=== PATIENT | male | born 1950 | race Caucasian/White ===

== ENCOUNTER 2024-05-26 18:43 | Inpatient (IN) | payer SELFPAY ==
[~2024-05-26] VITALS: Ht 182.9 cm; Wt 78.6 kg
[2024-05-26 19:20] LABS: BASOPHILS ABSOLUTE AUTO 0.01 K/mm3 (0.00-0.23); BASOPHILS PERCENT AUTO 0 % (0-2); EOSINOPHILS ABSOLUTE AUTO 0.02 K/mm3 (0.00-0.68); EOSINOPHILS PERCENT AUTO 0 % (0-6); Hematocrit 38.8 % (37.0-53.0); Hemoglobin 13.2 g/dL (13.5-17.5); IMMATURE GRAN ABSOLUTE AUTO 0.03 K/mm3 (0.00-0.10); IMMATURE GRAN PERCENT AUTO 0 % (0-1); LYMPHOCYTES PERCENT AUTO 14 % (21-46); MONOCYTES ABSOLUTE AUTO 0.52 K/mm3 (0.16-1.47); MONOCYTES PERCENT AUTO 7 % (4-13); Mean Corpuscular HGB 33.3 pg (26.0-34.0); Mean Corpuscular Volume 98 fL (80-100); Mean Platelet Volume 11.6 fL (9.1-12.4); NEUTROPHILS ABSOLUTE AUTO 5.47 K/mm3 (1.96-9.15); NEUTROPHILS PERCENT AUTO 78 % (41-73); Platelet Count 88 K/mm3 (150-400); RDW Standard Deviation 61.5 fL (35.1-46.3); Red Blood Cell Count 3.96 M/mm3 (4.30-5.90); White Blood Cell Count 7.05 K/mm3 (4.00-11.30)
[2024-05-26] MEDS ORDERED: MethylPREDNISolone Sod Succ 125 MG Vial IV ONE (19:25)
[2024-05-26] MEDS ORDERED: HYDACE10B PO (19:31)
[2024-05-26 19:36] LABS: Alanine Aminotransfer (ALT/SGP 32 U/L (12-78); Albumin, Blood 2.1 g/dL (3.4-5.0); Albumin/Globulin Ratio 0.5 (0.8-1.8); Alk Phos 350 U/L (50-136); Anion Gap 12 mmol/L (3-11); Aspartate Aminotrans (AST/SGOT 213 U/L (12-37); Bilirubin, Total 3.5 mg/dL (0.1-1.0); Blood Urea Nitrogen 13 mg/dL (8-24); Bun/Creatinine Ratio 15.9 (12.0-20.0); CO2, Blood 22 mmol/L (21-32); Calcium, Blood 8.3 mg/dL (8.5-10.1); Chloride, Blood 105 mmol/L (98-108); Creatinine, Blood 0.82 mg/dL (0.60-1.20); Globulin, Blood 4.3 g/dL (2.2-4.0); Glomerular Filtration Rate 92 (60-); Glucose, Blood 88 mg/dL (70-99); Potassium, Blood 4.1 mmol/L (3.5-5.5); Sodium, Blood 135 mmol/L (136-145); Total Protein, Blood 6.4 g/dL (6.4-8.2)
[2024-05-26 20:24] LABS: Influenza A, PCR NEGATIVE (NEGATIVE); Influenza B, PCR NEGATIVE (NEGATIVE); Resp Syncytial Virus, PCR NEGATIVE (NEGATIVE)
[2024-05-26 21:04] LABS: SARS-Cov-2 (COVID-19) PCR, MMC POSITIVE (NEGATIVE)
[2024-05-26 21:08] LABS: Ethanol (Alcohol), Blood, Med <3 mg/dL
[2024-05-26 21:55] LABS: International Normalized Ratio 1.23
[2024-05-26] MEDS ORDERED: Acetaminophen 325 MG TABLET PO PRN (22:50)
[2024-05-26] MEDS ORDERED: OxyCODONE HCL 5 MG TAB PO PRN ×2 (22:50→23:55)
[2024-05-26] MEDS ORDERED: Guaifenesin/Dextromethorphan Syrup 5 ML UDC PO PRN (22:50)
[2024-05-26] MEDS ORDERED: Melatonin 3 MG Tab PO PRN (22:50)
[2024-05-26] MEDS ORDERED: Ondansetron HCl 2 MG / ML 2ML Vial IV PRN (22:50)
[2024-05-26 22:56] LABS: Source, Urine Voided
[2024-05-26 22:58] LABS: Blood, Urine Neg (Neg); Glucose Qualitative, Urine Neg (Neg); Ketones, Urine 1+ (Neg); Leukocyte Esterase, Urine 1+ (Neg); Nitrite, Urine Neg (Neg); Protein, Urine 2+ (Neg); Specific Gravity, Urine 1.005 (1.003-1.022); Urobilinogen, Urine 3+ (Normal)
[2024-05-26 23:06] LABS: Appearance, Urine Clear (Clear); Bilirubin, Urine 1+ (Neg); Color, Urine Amber (P-Yellow)
[2024-05-26 23:07] LABS: Bacteria Not Seen /hpf; Red Blood Cells, Urine Not Seen /hpf (0-2); Squamous Epithelial Cells Not Seen /hpf (Few); White Blood Cells, Urine 0-2 /hpf (0-5)
[2024-05-26] MEDS ORDERED: Albuterol HFA200 ACT/6.7 GM INH INH PRN (23:40)
[2024-05-26 23:46] LABS: D-Dimer, Quantitative 2.52 mg/L FEU (0.00-0.52)
[2024-05-26] MEDS ORDERED: OxyCODONE HCL 5 MG TAB PO ONE (23:55)
[2024-05-27 00:10] VITALS: BP 143/74
[2024-05-27] MEDS ORDERED: Morphine Sulfate 4 MG/1 ML Injection IV PRN (02:45)
[2024-05-27] MEDS ORDERED: Naloxone HCl 0.4MG / ML 1ML Vial IV PRN (02:45)
[2024-05-27 05:33] VITALS: BP 135/71
[2024-05-27 05:50] LABS: BASOPHILS ABSOLUTE AUTO 0.01 K/mm3 (0.00-0.23); BASOPHILS PERCENT AUTO 0 % (0-2); EOSINOPHILS PERCENT AUTO 0 % (0-6); Hematocrit 36.1 % (37.0-53.0); Hemoglobin 12.5 g/dL (13.5-17.5); IMMATURE GRAN ABSOLUTE AUTO 0.01 K/mm3 (0.00-0.10); IMMATURE GRAN PERCENT AUTO 0 % (0-1); LYMPHOCYTES ABSOLUTE AUTO 0.49 K/mm3 (0.84-5.20); LYMPHOCYTES PERCENT AUTO 11 % (21-46); MONOCYTES ABSOLUTE AUTO 0.15 K/mm3 (0.16-1.47); MONOCYTES PERCENT AUTO 3 % (4-13); Mean Corpuscular HGB 33.3 pg (26.0-34.0); Mean Corpuscular HGB Conc 34.6 g/dL (31.5-36.5); Mean Corpuscular Volume 96 fL (80-100); NEUTROPHILS ABSOLUTE AUTO 3.85 K/mm3 (1.96-9.15); NEUTROPHILS PERCENT AUTO 85 % (41-73); Platelet Count 74 K/mm3 (150-400); RDW Coefficient Variation 16.8 % (11.7-14.2); RDW Standard Deviation 59.5 fL (35.1-46.3); Red Blood Cell Count 3.75 M/mm3 (4.30-5.90); White Blood Cell Count 4.51 K/mm3 (4.00-11.30)
--- NOTE | 2024-05-27 06:00 | NUR ---
NOC SHIFT SUMMARY REPORT RECEIVED FROM EMILY IN THE ER. PT ARRIVED VIA GURNEY TO ROOM 359 AT 0010 IN NO APPARENT DISTRESS. SEE ADMISSION ASSESSMENT. HE IS JAUNDICED WITH MODERATE ABDOMINAL DISTENSION, 3+ RLE EDEMA, 2+ LLE EDEMA. MD AWARE OF ASYMETRICAL EDEMA. PT REPORTS HIS CHRONIC BACK PAIN IS MUCH WORSE THAN IT WAS AT HOME. HE SUSPECTS THIS WAS CAUSED BY SPENDING SEVERAL HOURS ON A GURNEY. 5MG OXYCODONE WAS NOT EFFECTIVE FOR HIM. HE REPORTS OPIOID TOLERANCE. MD CARPIOFIED. RECEIVED ORDERS FOR IV MORPHINE. PT HAD AN EPISODE OF DIARRHEA. WILL BE NPO EXCEPT CHIPS AND MEDS IN ANTICIPATION FOR A PARACENTESIS TODAY.
[2024-05-27 06:10] LABS: Albumin, Blood 1.9 g/dL (3.4-5.0); Albumin/Globulin Ratio 0.5 (0.8-1.8); Bilirubin, Total 2.9 mg/dL (0.1-1.0); Bun/Creatinine Ratio 17.7 (12.0-20.0); Creatinine, Blood 0.73 mg/dL (0.60-1.20); Magnesium, Blood 1.9 mg/dL (1.6-2.4); Potassium, Blood 4.5 mmol/L (3.5-5.5); Total Protein, Blood 5.9 g/dL (6.4-8.2)
[2024-05-27 06:50] LABS: Cancer Antigen 19-9 240.9 U/mL (2.0-37.0); Carcinoembryonic Antigen 13.2 ng/mL (0.0-3.0)
[2024-05-27 06:53] LABS: Alpha Feto Protein, Tumor Mkr >20000.0 ng/mL (0.0-8.0)
[2024-05-27 08:28] VITALS: BP 143/68
[2024-05-27] MEDS ORDERED: Docusate Sodium 100 MG Cap PO SCH (09:00)
[2024-05-27] MEDS ORDERED: Enoxaparin 40 MG/0.4 ML SYR SC SCH (09:00)
[2024-05-27] MEDS ORDERED: Thiamine HCl 100 MG Tab PO SCH (15:00)
[2024-05-27 15:53] VITALS: BP 140/69
[2024-05-27] MEDS ORDERED: Propranolol HCL 20 MG TAB PO SCH (16:30)
--- NOTE | 2024-05-27 19:58 | NUR ---
SUMMARY- PT A/O X3, POOR HISTORIAN. SLEPT MOST OF THE MORNING, VERY SLEEPY BU AWAKENS TO VERBAL STIM. PLEASANT AND COOPERATIVE. SET OFF BED ALARM AT 1100 NEEDING TO URINATE, CONTINENT OF URINE. VOIDED ONCE TODAY 200ML IY/LIVER APPEARING URINE. TOLERATING FLUIDS, LIKES PEPSI. HAS VERY LITTLE APPETITE, COULD ONLY GET PT TO EAT A FEW BITES OF LUNCH AND DINNER, NPO FOR BREAKFAST TIME. PT IS JAUNDICED, LG DISTENDED ABD, TENDER TO PALP. SEVERE EDEMA BLE AND ARMS WITH THIN FRAGILE SKIN AND EDEMA. CHRONIC PAIN IN BACK CONTROLLED WITH OXYCODONE 5MG Q4. DR LEVINE DC'D PARACENTESIS AND CT OF CHEST. PALLIATIVE SPOKE WITH PT SEE NOTES. FAMILY IN TO VISIT AT NOON TIME. PT GOT OOB TO CHAIR ONCE FOR 30MIN WHILE WE WASHED HIM AND CHANGED LINENS. TIRES EASILY BUT ABLE TO STAND WITH SBA, VERY WEAK. REPORTED TO NOC CHARIS SIDDIQUI
[2024-05-27 20:22] VITALS: BP 143/82
[2024-05-28 03:24] VITALS: BP 152/76
[2024-05-28 05:41] LABS: Hematocrit 38.4 % (37.0-53.0); Hemoglobin 13.1 g/dL (13.5-17.5); Mean Corpuscular HGB 33.5 pg (26.0-34.0); Mean Corpuscular HGB Conc 34.1 g/dL (31.5-36.5); Mean Corpuscular Volume 98 fL (80-100); Platelet Count 117 K/mm3 (150-400); RDW Coefficient Variation 16.8 % (11.7-14.2); RDW Standard Deviation 61.1 fL (35.1-46.3); Red Blood Cell Count 3.91 M/mm3 (4.30-5.90); White Blood Cell Count 14.68 K/mm3 (4.00-11.30)
[2024-05-28 05:54] LABS: International Normalized Ratio 1.22; Prothrombin Time Results 12.9 Sec (9.7-11.5)
--- NOTE | 2024-05-28 05:55 | NUR ---
Patient alert and oriented x1-2, restless in bed, frequently requiring redirection or replacement in bed. Bed alarm active and effective in preventing falls. PRN pain medication given twice, see eMAR, tolerated well. 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
[2024-05-28 06:07] LABS: Albumin, Blood 2.2 g/dL (3.4-5.0); Albumin/Globulin Ratio 0.5 (0.8-1.8); Bilirubin, Total 3.5 mg/dL (0.1-1.0); Bun/Creatinine Ratio 20.9 (12.0-20.0); Calcium, Blood 8.2 mg/dL (8.5-10.1); Creatinine, Blood 0.91 mg/dL (0.60-1.20); Globulin, Blood 4.5 g/dL (2.2-4.0); Potassium, Blood 4.3 mmol/L (3.5-5.5); Total Protein, Blood 6.7 g/dL (6.4-8.2)
[2024-05-28 07:59] VITALS: BP 144/90
[2024-05-28] MEDS ORDERED: Multivitamins 1 Tab PO SCH (09:00)
[2024-05-28] MEDS ORDERED: Spironolactone 25 MG Tab PO SCH (09:00)
[2024-05-28 15:13] VITALS: BP 139/67
--- NOTE | 2024-05-28 17:44 | NUR ---
MET WITH PATIENT AND DISCUSSED GOALS OF CARE. GISELLA REPORTED THAT HE HASNT BEEN EATING WELL RECENTLY DUE TO NAUSEA, BUT IT IS IMPROVING. HE DENIES PAIN AT THIS TIME. HE REPORTES BEING TIRED BUT SLEEPING OK. ATTEMPTED TO HAVE A CONVERSATION ABOUT HIS PRUSUING DIAGNOSTIC AND TREATMENT FOR SUSPECTED CANCER, HE CHANGED THE SUBJECT QUICKLY SEVERAL TIMES. PC WILL CONTINUE TO BE AVALIABLE.
--- NOTE | 2024-05-28 18:03 | NUR ---
SHIFT SUMMARY PATIENT ALERT AND INTERACTIVE BUT CONFUSED. FAMILY IN TO SEE PATIENT. PATIENT HAD CT DONE OF CHEST. PATIENT EASILY IRRITABLE IF UNSURE OR CONFUSED. FAMILY SUPPORTIVE AND EAGER TO GET PATIENT HOME AND HAVE A PLAN FOR CARE. CONTINUE TO MEDICATE FOR CHRONIC PAIN NEEDED PER MAR. POSSIBLE DISCHARGE TOMORROW AND PLAN FOR OUTPATIENT FOLLOW UP.
[2024-05-28 19:38] VITALS: BP 148/79
[2024-05-28] MEDS ORDERED: LORazepam 2 MG/ML 1ML Injection IV PRN (21:55)
[2024-05-29 04:03] VITALS: BP 138/71
[2024-05-29 05:00] LABS: BASOPHILS ABSOLUTE AUTO 0.01 K/mm3 (0.00-0.23); BASOPHILS PERCENT AUTO 0 % (0-2); EOSINOPHILS PERCENT AUTO 0 % (0-6); Hemoglobin 11.9 g/dL (13.5-17.5); IMMATURE GRAN ABSOLUTE AUTO 0.09 K/mm3 (0.00-0.10); IMMATURE GRAN PERCENT AUTO 1 % (0-1); LYMPHOCYTES ABSOLUTE AUTO 0.61 K/mm3 (0.84-5.20); LYMPHOCYTES PERCENT AUTO 9 % (21-46); MONOCYTES ABSOLUTE AUTO 0.53 K/mm3 (0.16-1.47); MONOCYTES PERCENT AUTO 7 % (4-13); Mean Corpuscular HGB 33.5 pg (26.0-34.0); Mean Corpuscular Volume 96 fL (80-100); Mean Platelet Volume 11.6 fL (9.1-12.4); NEUTROPHILS PERCENT AUTO 83 % (41-73); Platelet Count 77 K/mm3 (150-400); RDW Coefficient Variation 16.7 % (11.7-14.2); RDW Standard Deviation 59.2 fL (35.1-46.3); Red Blood Cell Count 3.55 M/mm3 (4.30-5.90); White Blood Cell Count 7.14 K/mm3 (4.00-11.30)
[2024-05-29 05:46] LABS: Albumin, Blood 1.9 g/dL (3.4-5.0); Albumin/Globulin Ratio 0.5 (0.8-1.8); Bilirubin, Total 3.9 mg/dL (0.1-1.0); Bun/Creatinine Ratio 22.4 (12.0-20.0); Calcium, Blood 7.8 mg/dL (8.5-10.1); Creatinine, Blood 0.8 mg/dL (0.60-1.20); Globulin, Blood 3.9 g/dL (2.2-4.0); Percent Saturation 26.1 % (20.0-50.0); Total Protein, Blood 5.8 g/dL (6.4-8.2)
--- NOTE | 2024-05-29 06:11 | NUR ---
Patient alert and confused throughout shift, impulsive, unable to appropriately redirect or follow direction. Patient requiring Maria T vest restraint system to maintain safety in bed, tolerating well. 2L oxygen via nasal cannula placed on patient r/t SpO2 88% on room air while sleeping overnight. PRN ativan order placed by hospitalist team, one dose given and tolerated well.
[2024-05-29 08:12] VITALS: BP 117/77
[2024-05-29] MEDS ORDERED: CefTRIAXone Sodium 2,000 MG in NS 100 ML IV SCH (09:00)
[2024-05-29] MEDS ORDERED: Acetaminophen 650 MG Supp PR PRN (14:20)
[2024-05-29] MEDS ORDERED: Atropine Sulfate 1% Opth Soln 2ML BTL SL PRN (14:20)
[2024-05-29 15:03] VITALS: BP 134/72
--- NOTE | 2024-05-29 17:42 | NUR ---
SHIFT SUMMARY PATIENT RESTLESS, CONFUSED, AND REPEATEDLY ATTEMPTING TO CLIMB OUT OF BED. PATIENT UNABLE TO STAND WITHOUT ASSISTANCE AND HIGH FALL RISK. JOSUE VEST CONTINUES TO BE IN PLACE. PATIENT REPOSITIONED AND TURNED FREQUENTLY. PATIENT TO CT FOR HEAD CT EARLY ON SHIFT. ON RETURN, PATIENT FOUND TO HAVE A SKIN TEAR ON R ARM NEAR AC AREA. AREA CLEANSED, STERI STRIPS APPLIED AND COVERED WITH A DRY DRESSING. ATTEMPTED TO USE CONDOM CATH BECAUSE OF AGITATION RELATED TO NEED TO VOID AND NOW NO LONGER ABLE TO MANAGE URINAL. PATIENT PULLED CONDOM CATH OFF. FAMILY UPDATED RELATED TO CONDITION. PATIENT CONTINUES TO BE A FULL CODE AT THIS TIME.
[2024-05-29 20:43] VITALS: BP 110/88
--- NOTE | 2024-05-29 21:10 | NUR ---
FAMILY CALLED AND STATED THAT THEY WANTED TO CHANGE THE PATIENT'S CODE STATUS, THE DAUGHTER MENDEZ ANTHONY AND HIS ARTI KAPLAN. SPOKE WITH MARISABEL AND GOT ORDERS FOR DNR. FAMILY WANTS THE DNR FOR TONIGHT AND THEY WILL DISCUSS WHAT COMFORT MEASURES ARE TOMORROW AND POSSIBLY CHANGE THEM TO COMFORT MEASURES TOMORROW. PRIMARY RN MARCIA IS AWARE.
[2024-05-30 04:29] VITALS: BP 98/79
[2024-05-30 05:13] LABS: BASOPHILS ABSOLUTE AUTO 0.02 K/mm3 (0.00-0.23); BASOPHILS PERCENT AUTO 0 % (0-2); EOSINOPHILS PERCENT AUTO 0 % (0-6); Hematocrit 33.4 % (37.0-53.0); Hemoglobin 11.4 g/dL (13.5-17.5); IMMATURE GRAN ABSOLUTE AUTO 0.16 K/mm3 (0.00-0.10); IMMATURE GRAN PERCENT AUTO 2 % (0-1); LYMPHOCYTES ABSOLUTE AUTO 0.79 K/mm3 (0.84-5.20); LYMPHOCYTES PERCENT AUTO 10 % (21-46); MONOCYTES ABSOLUTE AUTO 0.73 K/mm3 (0.16-1.47); MONOCYTES PERCENT AUTO 9 % (4-13); Mean Corpuscular HGB 33.1 pg (26.0-34.0); Mean Corpuscular HGB Conc 34.1 g/dL (31.5-36.5); Mean Corpuscular Volume 97 fL (80-100); Mean Platelet Volume 12.7 fL (9.1-12.4); NEUTROPHILS ABSOLUTE AUTO 6.07 K/mm3 (1.96-9.15); NEUTROPHILS PERCENT AUTO 78 % (41-73); Platelet Count 71 K/mm3 (150-400); RDW Coefficient Variation 16.8 % (11.7-14.2); RDW Standard Deviation 58.8 fL (35.1-46.3); Red Blood Cell Count 3.44 M/mm3 (4.30-5.90); White Blood Cell Count 7.77 K/mm3 (4.00-11.30)
--- NOTE | 2024-05-30 05:25 | NUR ---
SHIFT SUMMARY PT RESTLESS, CONFUSED AND ATTEMPTING TO GET OOB FOR MOST OF NIGHT. PT DID HAVE SOME TIMES WHEN SLEEPING BUT MOSTLY RESTLESS. POSIE VEST STILL IN FOR SAFTEY. PT HAS CONDOM CATH ON, REPLACED TWICE DURING THE SHIFT. PT HAVING LOW URINE OUTPUT. FAMILY CHANGED CODE STATUS TO DNR TONIGHT. REQUESTING MORE INFORMATION ON COMFORT CARE MEASURES. VSS. BED ALARM ON, CALL LIGHT WITHIN REACH
[2024-05-30 05:35] LABS: Calcium, Blood 7.7 mg/dL (8.5-10.1); Creatinine, Blood 0.79 mg/dL (0.60-1.20); Potassium, Blood 3.7 mmol/L (3.5-5.5)
[2024-05-30 08:11] VITALS: BP 141/68
[2024-05-30] MEDS ORDERED: Furosemide 10 MG/ML 4ML Vial IV ONE (11:00)
[2024-05-30 11:31] LABS: Albumin, Blood 1.8 g/dL (3.4-5.0)
[2024-05-30 12:32] VITALS: BP 133/92
[2024-05-30] MEDS ORDERED: Morphine Sulfate 4 MG/1 ML Injection IV PRN (16:50)
--- NOTE | 2024-05-30 17:44 | NUR ---
SHIFT SUMMARY PT CONT LEVEL OF CARE. PT NOTED TO BE A&O TO SELF ONLY. PT VERY WITHDRAWN AND CONFUSED THIS SHIFT. PT RECEIVED PRN ATIVAN FOR AGITATION X1 THIS SHIFT WITH EFFECTIVENESS.
[2024-05-30 19:36] VITALS: BP 101/82
[2024-05-31 02:15] VITALS: BP 125/66
[2024-05-31 05:12] LABS: BASOPHILS ABSOLUTE AUTO 0.04 K/mm3 (0.00-0.23); BASOPHILS PERCENT AUTO 1 % (0-2); EOSINOPHILS ABSOLUTE AUTO 0.02 K/mm3 (0.00-0.68); EOSINOPHILS PERCENT AUTO 0 % (0-6); Hematocrit 31.9 % (37.0-53.0); Hemoglobin 10.8 g/dL (13.5-17.5); IMMATURE GRAN ABSOLUTE AUTO 0.24 K/mm3 (0.00-0.10); IMMATURE GRAN PERCENT AUTO 3 % (0-1); LYMPHOCYTES ABSOLUTE AUTO 0.96 K/mm3 (0.84-5.20); LYMPHOCYTES PERCENT AUTO 12 % (21-46); MONOCYTES ABSOLUTE AUTO 0.99 K/mm3 (0.16-1.47); MONOCYTES PERCENT AUTO 12 % (4-13); Mean Corpuscular HGB 33.2 pg (26.0-34.0); Mean Corpuscular HGB Conc 33.9 g/dL (31.5-36.5); Mean Corpuscular Volume 98 fL (80-100); Mean Platelet Volume 12.6 fL (9.1-12.4); NEUTROPHILS ABSOLUTE AUTO 6.07 K/mm3 (1.96-9.15); NEUTROPHILS PERCENT AUTO 73 % (41-73); Platelet Count 80 K/mm3 (150-400); RDW Coefficient Variation 16.9 % (11.7-14.2); Red Blood Cell Count 3.25 M/mm3 (4.30-5.90); White Blood Cell Count 8.32 K/mm3 (4.00-11.30)
--- NOTE | 2024-05-31 05:41 | NUR ---
SHIFT SUMMARY PT ALERT TO SELF. CAN ANSWER YES OR NO BUT CANNOT GIVE DETAIL. WHEN ASKED IF HE WAS IN PAIN HE SAID YES BUT COULD NOT SAY WERE OR DESCRIBE PAIN. ALSO COULD NOT REMEMBER HE WAS IN THE HOSPITAL. PT CONTINUED TO ATTEMPT TO GET OUT OF BED AT TIMES T/O NIGHT AND WOULD REMOVED CONTINIOUS PULSE OX AND OXYGEN. JOSUE VEST REMAINS IN PLACE. MEDICATED PER EMAR FOR PAIN. REPOSITIONED AND ATTENDS CHANGED NEEDED. VSS. BED ALARM ON. BED IN LOWEST POSITION AND CALL LIGHT NEAR PT.
[2024-05-31 06:00] LABS: Albumin, Blood 1.8 g/dL (3.4-5.0); Albumin/Globulin Ratio 0.5 (0.8-1.8); Bilirubin, Total 3.4 mg/dL (0.1-1.0); Bun/Creatinine Ratio 26.4 (12.0-20.0); Calcium, Blood 7.5 mg/dL (8.5-10.1); Creatinine, Blood 0.76 mg/dL (0.60-1.20); Globulin, Blood 3.5 g/dL (2.2-4.0); Magnesium, Blood 1.9 mg/dL (1.6-2.4); Phosphorus, Blood 2.6 mg/dL (2.5-4.9); Potassium, Blood 3.3 mmol/L (3.5-5.5); Total Protein, Blood 5.3 g/dL (6.4-8.2)
[2024-05-31 08:27] VITALS: BP 120/72
[2024-05-31] MEDS ORDERED: Morphine Sulfate 20 MG/1ML 1 ML Oral Syringe SL PRN (11:55)
[2024-05-31] MEDS ORDERED: LORazepam 1 MG Tab PO PRN (11:55)
[2024-05-31] MEDS ORDERED: Scopolamine Hydrobromide Patch TOP PRN (11:55)
[2024-05-31] MEDS ORDERED: Acetaminophen 650 MG Supp PR PRN (11:55)
[2024-05-31] MEDS ORDERED: Atropine Sulfate 1% Opth Soln 2ML BTL SL PRN (11:55)
--- NOTE | 2024-05-31 12:43 | NUR ---
GOALS OF CARE MEETING WITH PROVIDER, PT AND FAMILY AFTER PROVIDER REVIEWED DIAGNOSTIC RESULTS AND PROGNOSIS, PT AND FAMILY ELECT FOR COMFORT CARE. PLAN TO D/C HOME WITH HOSPICE. FRANCISCA COCHRAN NOTIFIED BEDSIDE RN NOTIFIED
--- NOTE | 2024-05-31 18:31 | NUR ---
SUMMARY PT TRANSITIONED TO COMFORT CARE THIS SHIFT. BRICEÑO CATHETER PLACED FOR RETENTION. PT CURRENTLY RESTING COMFORTABLY WITH EYES CLOSED. PT REMOVED O2, BREATHING UNLABORED. RESTRAINTS REMOVED AT 1600, PT HAS NOT TRIED TO GET OUT OF BED SINCE THEN. BED ALARM IS ON AND CALL LIGHT IS IN REACH.
--- NOTE | 2024-06-01 04:08 | NUR ---
SHIFT SUMMARY PT. IS ON COMFORT CARE MEASURES. MEDICATED X1 (SEE EMAR.) PT.RESTING RR EVEN, UNLABORED. NO ACUTE EVENTS/DISTRESS DURING THIS SHIFT. WILL HANDOFF TO THE INCOMING SHIFT NURSE. BED AT THE LOWEST POSITION.
--- NOTE | 2024-06-01 18:20 | NUR ---
SUPPORTIVE VISIT FAMILY AT BEDSIDE. ANSWERED QUESTIONS ABOUT HOME HOSPICE AND RESOURCES. PT APPEARS COMFORTABLE IN BED. NO S/SX OF DISTRESS NOTED. PC WILL REMAIN AVAILABLE.
--- NOTE | 2024-06-02 04:57 | NUR ---
SHIFT SUMMARY. PATIENT IS ON COMFORT CARE. PATIENT IS ALERT TO SELF, SITUATION, AND PERSON. PATIENT MEDICATED FOR PAIN AND ANXIETY X1 THIS SHIFT. PLAN IS FOR PATIENT TO DISCHARGE HOME ON HOSPICE. PATIENT REPOSITIONED T/O SHIFT. PATIENT IS PLEASANT. PATIENT HAS OCCASSIONAL COUGH. PATIENT SLEPT MOST OF SHIFT WITH RESPIRATIONS EQUAL AND UNLABORED. BED IS LOCKED IN THE LOWEST POSITION [facility] CALL LIGHT IN REACH. CARE IS ONGOING.
[2024-06-02] MEDS ORDERED: NS 250 ML IV PRN (10:15)
[2024-06-02] MEDS ORDERED: Norco 5-325 Ta1 EACH PO (12:43)
[2024-06-02] MEDS ORDERED: ACEPHEN PR (12:45)
[2024-06-02] MEDS ORDERED: ALBU90OI INH (12:46)
[2024-06-02] MEDS ORDERED: ATROPINE SULFATE2 M1 SL (12:47)
[2024-06-02] MEDS ORDERED: ROBITUSSIN DM PO (12:56)
[2024-06-02] MEDS ORDERED: DOCU100 PO (12:56)
[2024-06-02] MEDS ORDERED: Ativan1 MG PO (12:57)
[2024-06-02] MEDS ORDERED: MORP20L SL (12:57)
[2024-06-02] MEDS ORDERED: NARCAN4 M1 (12:59)
[2024-06-02] MEDS ORDERED: TRANSDERM-SCOP1 EA13 TD (13:00)
== END 2024-06-02 12:51 | disposition hospice, home (50) | DRG 432 ==
LOC: ER 18:43 → MEDS 18:44
PROVIDERS: Emergency Medicine; Hospitalist; Internal Medicine; ADMIT Student in an Organized Health Care Education/Training Program
PROC: HZ2ZZZZ Detoxification Services for Substance Abuse Treatment (ICD-10-PCS; principal; 2024-05-26)
DX: K70.31 Alcoholic cirrhosis of liver with ascites (principal); I81 Portal vein thrombosis; U07.1 COVID-19; J12.82 Pneumonia due to coronavirus disease 2019; C22.0 Liver cell carcinoma; D68.9 Coagulation defect, unspecified; I85.10 Secondary esophageal varices without bleeding; G93.40 Encephalopathy, unspecified; J44.0 Chronic obstructive pulmonary disease with (acute) lower respiratory infection; E87.1 Hypo-osmolality and hyponatremia; Z51.5 Encounter for palliative care; Z66 Do not resuscitate; F10.90 Alcohol use, unspecified, uncomplicated; F17.210 Nicotine dependence, cigarettes, uncomplicated; M54.50 Low back pain, unspecified; G89.29 Other chronic pain; D69.6 Thrombocytopenia, unspecified; D64.9 Anemia, unspecified; Z79.891 Long term (current) use of opiate analgesic; Z71.6 Tobacco abuse counseling; Y90.0 Blood alcohol level of less than 20 mg/100 ml
CPT/HCPCS: 0241U; 36415; 70450; 71046; 71260; 74177; 76705; 80048; 80053; 80074; 81001; 82040; 82105; 82140; 82378; 82607; 82728; 82746; 83540; 83550; 83615; 83690; 83735; 83880; 84100; 84145; 85025; 85027; 85379; 85610; 85730; 86301; 87086; 93005; 93010; 93971; 94760; 94762; 96374-59; 96375; 97162; 97530; 99285-25; A9270; G0378; J0696; J1940; J2060; J2270; J2919; J7050; Q9967